=== PATIENT | female | born 1980 | race Caucasian/White ===

== ENCOUNTER 2016-12-22 14:33 | Inpatient (IN) ==
--- NOTE | 2016-12-22 14:45 | Emergency Department Note ---
Disposition Clinical Impression: Cellulitis Disposition: Admitted As Inpatient Condition: Good Referrals: NO,PCP [Primary Care Provider] - Forms: ED Satisfaction Letter Time of Disposition: 16:02 (Dr Su/Mg peres) Wound/Laceration HPI - General Chief Complaint: ED Wound/Laceration Stated Complaint: Cellulitis left lower leg Time Seen by Provider: 12/22/16 14:45 Source: patient Mode of arrival: ambulatory Limitations: no limitations Nursing Notes Reviewed: Yes Vital Signs Reviewed: Yes - History of Present Illness HPI Narrative: Seen Friday of this week for upper respiratory illnesses Havel erythema or fluid at that time it was thought not to be initiated worsen by Friday morning was seen at her local urgent care where she received IV antibiotics went home his continued to show a little bit of improvement then started getting worse again self family physician on Friday who placed her on a different oral antibiotic and as result was told to get worse to come to the emergency room she presents here today stating red-hot swollen lips extended outside the line margins that have been drawn on her leg she has had problems with elephantiasis of the lower extremity and is now getting superioris yellow honey crusted and weeping and draining patient has cough cold or flulike symptoms numbness and weakness or any further worsening of symptoms other than lower extremity not responding to oral antibiotics Onset (ago): week(s) Extremity Location: Left: lower leg, ankle, foot 1 - swollen edema red crusting weeping Place: home Patient Tetanus UTD: Yes Mechanism: other (chronic edema) Associated symptoms: Reports: other (weeping worseniing of erythema) Pain Severity: moderate Pain Scale: 4 - Related Data Home Medications Medication Instructions Recorded Confirmed Multivitamin [Multivitamins] 1 each PO DAILY 12/16/16 12/22/16 Levofloxacin [Levaquin] 750 mg PO DAILY 12/22/16 12/22/16 Previous Rx's Medication Instructions Recorded Promethazine [Phenergan] 25 mg PO Q6HR PRN #16 tablet 12/16/16 Allergies Allergy/AdvReac Type Severity Reaction Status Date / Time cephalexin [From Keflex] Allergy Rash Verified 12/22/16 14:35 Penicillins Allergy Rash Verified 12/16/16 18:25 Sulfa (Sulfonamide AdvReac Nausea Verified 12/16/16 18:25 Antibiotics) All systems ED: reviewed and negative except as stated. Review of Systems: As Per HPI Constitutional: Reports: weight change. Denies: fever, chills, weakness Eyes: Denies: eye pain ENT ED: Denies: ear pain Cardiovascular: Denies: chest pain Respiratory: Denies: cough, dyspnea Gastrointestinal: Denies: abdominal pain Genitourinary: Denies: urgency, dysuria Musculoskeletal: Denies: back pain, neck pain Integumentary: Reports: lesions (left leg). Denies: abrasion Neurological: Denies: headache Psychiatric: Denies: anxiety Endocrine: Reports: fatigue Hematological/Lymphatic: Denies: easy bleeding Allergic/Immunologic: Denies: facial swelling Past Medical History - Past Medical History Attestation: Yes The following information was validated with the patient. Source: patient, old records reviewed, nursing notes reviewed Medical history: Reports: no medical history, other Psychiatric history: Reports: no psych history - Social History Smoking Status: Never smoker Smokeless Tobacco Status: No Alcohol use: Reports: none Drug use: Reports: none Physical Exam - General Limitations: no limitations General appearance: alert, in no apparent distress, anxious - Head Head exam: atraumatic, normocephalic, normal inspection - Eye Eye exam: Present: normal appearance, PERRL, EOMI - ENT ENT exam: normal exam, normal oropharynx, mucous membranes moist - Neck Neck exam: Present: normal inspection, full ROM, trachea midline - Chest Chest inspection: Present: normal inspection, symmetric chest wall rise - Respiratory Respiratory exam: Present: normal lung sounds bilaterally - Cardiovascular Cardiovascular exam: Present: regular rate, normal rhythm, normal heart sounds - Abdominal Exam Abdominal exam: Present: soft, Non-Tender, normal bowel sounds. Absent: tenderness, distention, guarding, rebound, rigidity, mass, pulsatile mass - Expanded Upper Extremity Exam Shoulder exam: Present: normal inspection, full ROM Arm exam: Present: normal inspection, full ROM Elbow exam: Present: normal inspection, full ROM Forearm/Wrist exam: Present: normal inspection, full ROM Hand exam: Present: normal inspection, full ROM Vascular exam: Normal: capillary refill, radial pulse - Expanded Lower Extremity Exam Hip/Pelvis exam: Present: normal inspection, full ROM Upper leg exam: Present: normal inspection, full ROM 1 - And edema from the mid thigh distally with the large yellow blisters over the anterior tibial region and over the dorsal aspect of the foot with drainage of serous-type solution beefy red erythematous large plaquing noted over the anterior aspect of the leg with a fine erythematous rash which extends the marking on the pen by greater than centimeters from the deep erythema but the pale erythematous extending out 2 - Large blisterlike formation Knee exam: Present: normal inspection Lower leg exam: Present: normal inspection Ankle exam: Present: normal inspection Foot/toe exam: Present: normal inspection Neurovascular/Tendon exam: Present: normal capillary refill, normal fine/light touch Gait: observed and normal - Back Exam Back exam: Present: normal inspection, full ROM. Absent: muscle spasm - Neurological Exam Neurological exam: Present: alert, oriented X3, CN II-XII intact - Psychiatric Psychiatric exam: Present: normal affect, normal mood - Skin Skin exam: Present: warm, dry, intact, normal color Course Course Narrative: Should seen and examined patient was started on antibiotics IV patient's leg was weeping almost 150-200 mL's of serous fluid while here in the emergency room on the floor and on the dressing to catch the weeping lesions with Mike Su admitted for MedSurg for IV antibiotics Vital Signs Temperature 99.5 F 12/22/16 14:36 Pulse Rate 95 12/22/16 14:36 Respiratory Rate 14 12/22/16 14:36 Blood Pressure 140/86 12/22/16 14:36 O2 Sat by Pulse Oximetry 99 12/22/16 14:36 Temperature 99.5 F 12/22/16 14:36 Pulse Rate 95 12/22/16 14:36 Respiratory Rate 14 12/22/16 14:36 Blood Pressure 140/86 12/22/16 14:36 O2 Sat by Pulse Oximetry 99 12/22/16 14:36 Oxygen Delivery Oxygen Delivery Room Air Wound/Laceration - MDM Narrative Medical decision making narrative: cellulitis - Medical Records Medical records reviewed: Yes I reviewed the patient's medical records. - Lab Data Lab results reviewed: Yes I reviewed the patient's lab results. Result diagrams: 12/22/16 15:29 Lab Results 12/22/16 12/22/16 Range/Units 15:29 15:29 WBC 10.3 (4.3-11.1) K/mcL RBC 4.25 (3.82-4.97) M/mcL Hgb 12.3 D (11.5-15.4) g/dL Hct 35.3 (35.3-44.9) % MCV 83.1 (83.0-100.0) fL MCH 28.9 (28.0-33.3) pg MCHC 34.8 (31.6-35.5) g/dL RDW 12.7 (11.5-14.5) % Plt Count 241 (140-400) K/mcL MPV 10.1 (9.4-12.4) fL PT 12.8 H (9.4-12.1) Seconds INR 1.2 Critical Care Time Critical Care Time: No
[2016-12-22] MEDS ORDERED: Vancomycin 1,000 MG in D5% in Water 250 ML IVPB ONE (15:16)
[2016-12-22] MEDS ORDERED: 0.9 % Sodium Chloride 1,000 ML IVC SCH (15:30)
[2016-12-22] MEDS ORDERED: Vancomycin 1,500 MG in D5% in Water 250 ML IVPB ONE (15:30)
[2016-12-22 15:37] LABS: Eosinophils # 0.2 K/mcL (0.0-0.6); Hematocrit 35.3 % (35.3-44.9); Hemoglobin 12.3 g/dL (11.5-15.4); Mean Corpuscular HGB Conc 34.8 g/dL (31.6-35.5); Mean Corpuscular Hemoglobin 28.9 pg (28.0-33.3); Mean Corpuscular Volume 83.1 fL (83.0-100.0); Mean Platelet Volume 10.1 fL (9.4-12.4); Platelet Count 241 K/mcL (140-400); Red Blood Count 4.25 M/mcL (3.82-4.97); Red Cell Distribution Width 12.7 % (11.5-14.5)
[2016-12-22 15:44] LABS: INR 1.2; Prothrombin Time 12.8 Seconds (9.4-12.1)
[2016-12-22 15:46] LABS: Activated Partial Thrombo Time 31.9 Seconds (26.0-36.0)
[2016-12-22 15:53] LABS: BUN/Creatinine Ratio 18 (6-26); Blood Urea Nitrogen 13 mg/dL (7-20); Calcium 9.6 mg/dL (8.6-10.8); Carbon Dioxide 21 mEq/L (19-29); Chloride 106 mEq/L (98-109); Glucose 153 mg/dL (70-99); Magnesium 2.1 mg/dL (1.6-2.6); Osmolality,Calculated 295 (280-300); Potassium 3.1 mEq/L (3.5-4.5); Sodium 141 mEq/L (136-145); eGFR For African Americans > 60 (> 60); eGFR For Non-African Americans > 60 (> 60)
[2016-12-22 15:55] LABS: Lymphocytes # 1.2 K/mcL (0.6-4.6); Monocytes # 0.2 K/mcL (0.0-1.3)
[2016-12-22] MEDS ORDERED: Naloxone 0.4 MG/ML INJ IVP PRN (16:17)
[2016-12-22] MEDS ORDERED: *HR* HYDROcodone/Acet 5/325 mg TABLET PO PRN (16:17)
[2016-12-22] MEDS: 0.9 % Sodium Chloride 1,000 ML IVC SCH ×2 (17:36→23:14)
[2016-12-22] MEDS: Ibuprofen 400 MG TABLET PO PRN (18:40)
[2016-12-22] MEDS: Lactobacillus 1 EACH CAP.SPRINK PO SCH (21:58)
[2016-12-23] MEDS: Ibuprofen 400 MG TABLET PO PRN ×3 (04:57→19:30)
[2016-12-23 06:45] LABS: Basophils # 0.1 K/mcL (0.0-0.2); Basophils % 0.7 %; Eosinophils # 0.2 K/mcL (0.0-0.6); Eosinophils % 2.2 %; Hematocrit 31.6 % (35.3-44.9); Hemoglobin 10.7 g/dL (11.5-15.4); Immature Granulocytes % 10.5 % (0-4); Lymphocytes # 1.8 K/mcL (0.6-4.6); Mean Corpuscular HGB Conc 33.9 g/dL (31.6-35.5); Mean Corpuscular Hemoglobin 28.6 pg (28.0-33.3); Mean Corpuscular Volume 84.5 fL (83.0-100.0); Mean Platelet Volume 10.1 fL (9.4-12.4); Monocytes # 0.6 K/mcL (0.0-1.3); Monocytes % 6.4 %; Neutrophils # 5.9 K/mcL (1.6-8.9); Platelet Count 227 K/mcL (140-400); Red Blood Count 3.74 M/mcL (3.82-4.97); Red Cell Distribution Width 12.6 % (11.5-14.5); Segmented Neutrophils % 61.2 %
[2016-12-23 06:47] LABS: INR 1.2; Prothrombin Time 12.5 Seconds (9.4-12.1)
[2016-12-23 06:49] LABS: Activated Partial Thrombo Time 28.3 Seconds (26.0-36.0)
[2016-12-23 07:01] LABS: BUN/Creatinine Ratio 13 (6-26); Blood Urea Nitrogen 9 mg/dL (7-20); Calcium 8.4 mg/dL (8.6-10.8); Carbon Dioxide 22 mEq/L (19-29); Chloride 109 mEq/L (98-109); Glucose 109 mg/dL (70-99); Osmolality,Calculated 291 (280-300); Potassium 3.4 mEq/L (3.5-4.5); Sodium 141 mEq/L (136-145); eGFR For African Americans > 60 (> 60); eGFR For Non-African Americans > 60 (> 60)
[2016-12-23] MEDS: Lactobacillus 1 EACH CAP.SPRINK PO SCH ×2 (07:53→21:34)
[2016-12-23] MEDS: 0.9 % Sodium Chloride 1,000 ML IVC SCH (07:53)
[2016-12-23 11:05] LABS: Platelet Estimate Normal (Normal)
[2016-12-23] MEDS ORDERED: Vancomycin 1,750 MG in D5% in Water 250 ML IVPB SCH (12:00)
--- NOTE | 2016-12-23 12:02 | Internal Med History&Physical ---
Date of Encounter: 12/23/16 Time of Encounter: 11:30 Assessment and Plan (1) Cellulitis Current visit: Yes Status: Acute She has been started on IV vancomycin. I have added lactobacillus and clindamycin. Further workup will be done as needed. Qualifiers: Site of cellulitis of extremity: lower extremity Laterality: left Qualified Code(s): L03.116 - Cellulitis of left lower limb (2) Anemia Current visit: Yes Status: Acute Follow-up CBC today shows hemoglobin decreased to 10.7. I suspect it is primarily dilutional. Will check labs in a.m. Qualifiers: Anemia type: unspecified type Qualified Code(s): D64.9 - Anemia, unspecified (3) Hypokalemia Current visit: Yes Status: Acute We will give supplemental potassium and monitor labs. Internal Medicine - H&P: HPI Chief complaint: Leg infection Admitted From: Home Plans for Post Hospital Care: Home History of present illness: Ms. Sparks is a 36 year old female who came to emergency room with worsening leg infection onset approximately 5 days earlier. She reports she had gone to emergency room December 16 with complaints of a fever. She was released but went to urgent care on the following day with increasing erythema of her left lower leg. She was prescribed oral doxycycline after receiving an IV dose of vancomycin. The infection continued to progress and she saw Yoli Spears CNP at [place] on December 20 for follow-up. Doxycycline was discontinued and she was placed on Levaquin. The redness seemed to worsen so she came to emergency room and was felt to have cellulitis. She was admitted to [facility] floor for ongoing care needs. She denies any injury or trauma to the leg. She had right leg cellulitis approximately 18-24 months ago. Past Med Surg Social Fam HX - Past Medical History Medical history: no medical history, other Psychiatric history: no psych history - Past Surgical History Surgical History: - Social History Smoking Status: Never smoker Smokeless Tobacco Status: No Alcohol use: none Drug use: none Internal Medicine - H&P: Meds Multivitamin [Multivitamins] 1 each PO DAILY 12/16/16 [History] Promethazine [Phenergan] 25 mg PO Q6HR PRN #16 tablet 12/16/16 [Rx] Levofloxacin [Levaquin] 750 mg PO DAILY 12/22/16 [History] Allergies cephalexin [From Keflex] Allergy (Verified 12/22/16 14:35) Rash Penicillins Allergy (Verified 12/16/16 18:25) Rash Sulfa (Sulfonamide Antibiotics) Adverse Reaction (Verified 12/16/16 18:25) Nausea All Systems PM: A 10-system review of systems was performed and is negative for pertinent findings except as documented above in the HPI. Review of systems: Gen.: She states her weight has been stable the past few months Cardiovascular: She has an occasional sensation of heart "fluttering" but has not had workup. She has a heart murmur but does not recall an echocardiogram done. She denies hypertension [place] heart failure angina DVT or pulmonary embolus Respiratory: She is a lifelong nonsmoker and has no known chronic and disease GI: She denies disorders of her liver gallbladder or exocrine pancreas : She has had UTIs on 1-2 occasions in the past. She denies other kidney or bladder disorders Neurologic: She denies large distribution strokes or seizures Endocrine: She had gestational diabetes when with her second child which resolved with delivery. She denies thyroid disease or hyperlipidemia Hematology/oncology: She had anemia in the past. She denies other blood disorders or malignancies Psychiatric: She denies anxiety depression or other mental health issues Musculoskeletal: She denies arthritis gout or other bone joint or muscle disorders - Constitutional Vitals: Temp Pulse Resp BP Pulse Ox 98.8 F 78 18 120/77 98 12/23/16 10:19 12/23/16 10:19 12/23/16 10:19 12/23/16 10:19 12/23/16 10:19 Exam: Gen.: She is a well-developed well-nourished female lying in bed who appears in minimal distress at present time HEENT: Head is atraumatic and normocephalic. Eyes: EOMI. There is no scleral icterus. Mouth: Mucosa is moist. Neck: Supple and nontender. There is no thyromegaly or adenopathy noted. Heart: Regular with a 2 to 3/6 systolic murmur heard at the left sternal border. S1 and S2 are preserved. No ectopics are heard. Lungs: No wheezes or crackles are heard. Abdomen: Soft and nontender. No masses or guarding are noted. Extremities: The left lower leg shows large area of cellulitis with sharp demarcation to normal skin. There are multiple fluid-filled bullae. She has 1- 2+ edema of the dorsum of the left foot. The right lower leg is unremarkable. Neurologic: Mental status: She is talkative and a good historian. Cranial nerves: Smile is symmetric. Forehead wrinkles bilaterally. Tongue protrudes midline. EOMI. Motor: There is no pronator drift. Cerebellar: Finger to nose is intact bilaterally. Skin: Warm and dry Internal Med - H&P Results - Labs CBC & Chem 7: 12/23/16 06:00 12/23/16 06:00 Labs: Short CBC 12/23/16 Range/Units 06:00 WBC 9.7 (4.3-11.1) K/mcL Hgb 10.7 L D (11.5-15.4) g/dL Hct 31.6 L (35.3-44.9) % Plt Count 227 (140-400) K/mcL Neutrophils # 5.9 (1.6-8.9) K/mcL BMP 12/23/16 06:00 Sodium 141 Potassium 3.4 L Chloride 109 Carbon Dioxide 22 BUN 9 Creatinine 0.67 Glucose 109 H Calcium 8.4 L
[2016-12-23] MEDS ORDERED: Clindamycin 600 MG/50 ML 600 MG/50 ML IV.SOLN IVPB SCH (13:00)
[2016-12-23] MEDS: Clindamycin 600 MG/50 ML 600 MG/50 ML IV.SOLN IVPB SCH ×2 (13:36→21:34)
[2016-12-23] MEDS ORDERED: Vancomycin 1,750 MG in D5% in Water 500 ML IVPB ONE (14:00)
[2016-12-24] MEDS: Vancomycin 1,500 MG in D5% in Water 250 ML IVPB SCH ×2 (03:08→13:39)
[2016-12-24 04:35] LABS: Hematocrit 31.3 % (35.3-44.9); Hemoglobin 10.7 g/dL (11.5-15.4); Mean Corpuscular HGB Conc 34.2 g/dL (31.6-35.5); Mean Corpuscular Hemoglobin 29.1 pg (28.0-33.3); Mean Corpuscular Volume 85.1 fL (83.0-100.0); Mean Platelet Volume 9.9 fL (9.4-12.4); Platelet Count 262 K/mcL (140-400); Red Blood Count 3.68 M/mcL (3.82-4.97); Red Cell Distribution Width 12.4 % (11.5-14.5)
[2016-12-24 04:54] LABS: Alanine Aminotransferase 74 Units/L (0-55); Albumin 2.2 g/dL (3.5-5.0); Albumin/Globulin Ratio 0.5 (1.1-2.2); Alkaline Phosphatase 93 Units/L (38-126); Aspartate Amino Transferase 48 Units/L (5-34); BUN/Creatinine Ratio 14 (6-26); Bilirubin,Total 0.6 mg/dL (0.2-1.2); Blood Urea Nitrogen 9 mg/dL (7-20); Calcium 8.3 mg/dL (8.6-10.8); Carbon Dioxide 24 mEq/L (19-29); Chloride 108 mEq/L (98-109); Globulin 4.1 g/dL (2.4-3.5); Glucose 118 mg/dL (70-99); Osmolality,Calculated 292 (280-300); Potassium 3.4 mEq/L (3.5-4.5); Sodium 141 mEq/L (136-145); Total Protein 6.3 g/dL (6.0-8.3); eGFR For African Americans > 60 (> 60); eGFR For Non-African Americans > 60 (> 60)
[2016-12-24] MEDS: Clindamycin 600 MG/50 ML 600 MG/50 ML IV.SOLN IVPB SCH ×3 (05:28→20:15)
[2016-12-24] MEDS: Ibuprofen 400 MG TABLET PO PRN ×2 (06:12→16:19)
[2016-12-24 07:12] LABS: Lymphocytes # 1.1 K/mcL (0.6-4.6); Monocytes # 0.4 K/mcL (0.0-1.3); Neutrophils # 8.9 K/mcL (1.6-8.9)
[2016-12-24] MEDS: Lactobacillus 1 EACH CAP.SPRINK PO SCH ×2 (08:01→20:14)
[2016-12-24 09:52] LABS: Hemoglobin A1C 5.1 %
--- NOTE | 2016-12-24 10:28 | Internal Med Progress Note ---
Date of Encounter: 12/24/16 Time of Encounter: 10:20 - Assessment and plan (1) Cellulitis Current Visit: Yes Status: Acute Assessment and plan: December 24. Continue IV vancomycin, clindamycin, and Lactobacillus. WBC has risen minimally and there is persistent significant left shift on differential. Qualifiers: Site of cellulitis of extremity: lower extremity Laterality: left Qualified Code(s): L03.116 - Cellulitis of left lower limb (2) Anemia Current Visit: Yes Status: Acute Assessment and plan: December 24. Hemoglobin stable. Anemia testing is pending. Qualifiers: Anemia type: unspecified type Qualified Code(s): D64.9 - Anemia, unspecified (3) Hypokalemia Current Visit: Yes Status: Acute Assessment and plan: December 24. We will continue supplemental potassium and monitor labs. - Subjective Interval history: December 24. She has no new complaints. - Constitutional Vitals: Temp Pulse Resp BP Pulse Ox 98.4 F 78 16 130/75 98 12/24/16 06:33 12/24/16 06:33 12/24/16 06:33 12/24/16 06:33 12/24/16 06:33 Exam: There are no new bullae seen. There has been confluence of previous individual bullae. The erythematous margins have not expanded. I reviewed her medications and lab results. Internal Medicine: Result - Labs CBC & Chem 7: 12/24/16 04:05 12/24/16 04:05 Labs: Short CBC 12/23/16 12/24/16 Range/Units 06:00 04:05 WBC 11.1 (4.3-11.1) K/mcL Hgb 10.7 L (11.5-15.4) g/dL Hct 31.3 L (35.3-44.9) % Plt Count 262 (140-400) K/mcL Neutrophils # 5.9 8.9 (1.6-8.9) K/mcL BMP 12/24/16 04:05 Sodium 141 Potassium 3.4 L Chloride 108 Carbon Dioxide 24 BUN 9 Creatinine 0.66 Glucose 118 H Calcium 8.3 L Liver Function 12/24/16 Range/Units 04:05 Total Bilirubin 0.6 (0.2-1.2) mg/dL AST 48 H (5-34) Units/L ALT 74 H (0-55) Units/L Alkaline Phosphatase 93 (38-126) Units/L Albumin 2.2 L (3.5-5.0) g/dL - ABG Interpretation ABG results: PT/INR, D-dimer PT 12.5 Seconds (9.4-12.1) H 12/23/16 06:00 Consult Discharge Plan - Plan Referrals: NO,PCP [Primary Care Provider] - 1 week
[2016-12-24 12:34] LABS: % Iron Saturation 18 % (15-50); Iron 42 mcg/dL (50-170); Transferrin 169 mg/dL (180-382)
[2016-12-24 12:47] LABS: Ferritin 290 ng/ml (5-204)
[2016-12-24 12:59] LABS: Folate 12.7 ng/mL (7.0-31.4)
[2016-12-25 01:32] LABS: Basophils # 0.1 K/mcL (0.0-0.2); Basophils % 1.2 %; Eosinophils # 0.3 K/mcL (0.0-0.6); Eosinophils % 2.6 %; Hematocrit 33.5 % (35.3-44.9); Hemoglobin 10.9 g/dL (11.5-15.4); Immature Granulocytes % 10.1 % (0-4); Lymphocytes # 2.4 K/mcL (0.6-4.6); Lymphocytes % 20.8 %; Mean Corpuscular HGB Conc 32.5 g/dL (31.6-35.5); Mean Corpuscular Hemoglobin 28.8 pg (28.0-33.3); Mean Corpuscular Volume 88.6 fL (83.0-100.0); Mean Platelet Volume 9.6 fL (9.4-12.4); Monocytes # 0.7 K/mcL (0.0-1.3); Monocytes % 5.7 %; Neutrophils # 6.9 K/mcL (1.6-8.9); Platelet Count 287 K/mcL (140-400); Red Blood Count 3.78 M/mcL (3.82-4.97); Red Cell Distribution Width 12.3 % (11.5-14.5); Segmented Neutrophils % 59.6 %
[2016-12-25 01:38] LABS: BUN/Creatinine Ratio 17 (6-26); Blood Urea Nitrogen 11 mg/dL (7-20); Calcium 8.6 mg/dL (8.6-10.8); Carbon Dioxide 22 mEq/L (19-29); Chloride 108 mEq/L (98-109); Glucose 108 mg/dL (70-99); Osmolality,Calculated 290 (280-300); Sodium 140 mEq/L (136-145); eGFR For African Americans > 60 (> 60); eGFR For Non-African Americans > 60 (> 60)
[2016-12-25] MEDS: Vancomycin 1,500 MG in D5% in Water 250 ML IVPB SCH (02:12)
[2016-12-25] MEDS: Ibuprofen 400 MG TABLET PO PRN ×2 (02:29→14:16)
[2016-12-25] MEDS: Clindamycin 600 MG/50 ML 600 MG/50 ML IV.SOLN IVPB SCH ×3 (05:31→20:46)
[2016-12-25] MEDS: *HR* Enoxaparin 40 MG/0.4 ML SYRINGE SQ SCH (05:31)
[2016-12-25 07:25] LABS: Platelet Estimate Normal (Normal)
[2016-12-25] MEDS: Lactobacillus 1 EACH CAP.SPRINK PO SCH ×2 (08:10→20:46)
[2016-12-25] MEDS ORDERED: Aminoglycoside Consult 1 EACH MC ONE (14:00)
[2016-12-25] MEDS: Vancomycin 1,750 MG in D5% in Water 500 ML IVPB SCH (14:16)
--- NOTE | 2016-12-25 18:13 | Internal Med Progress Note ---
Date of Encounter: 12/25/16 Time of Encounter: 11:05 - Assessment and plan (1) Cellulitis Current Visit: Yes Status: Acute Assessment and plan: December 24. Continue IV vancomycin, clindamycin, and Lactobacillus. WBC has risen minimally and there is persistent significant left shift on differential. December 25. WBC has risen minimally. There is resolution of the left shift on the differential. Continue present regimen. Anticipate discharge home tomorrow. Qualifiers: Site of cellulitis of extremity: lower extremity Laterality: left Qualified Code(s): L03.116 - Cellulitis of left lower limb (2) Anemia Current Visit: Yes Status: Acute Assessment and plan: December 24. Hemoglobin stable. Anemia testing is pending. December 25. Hemoglobin stable at 10.9. Anemia testing showed no factor deficiency. Qualifiers: Anemia type: unspecified type Qualified Code(s): D64.9 - Anemia, unspecified (3) Hypokalemia Current Visit: Yes Status: Acute Assessment and plan: December 24. We will continue supplemental potassium and monitor labs. December 25. Potassium has normalized. Continue present regimen. - Subjective Interval history: December 24. She has no new complaints. December 25. She has no new complaints. - Constitutional Vitals: Temp Pulse Resp BP Pulse Ox 98.7 F 86 20 111/74 96 12/25/16 14:21 12/25/16 14:21 12/25/16 14:21 12/25/16 14:21 12/25/16 14:21 Exam: The left leg erythema shows no expansion of borders. There is now generalized flaccid bullae without significant fluid remaining. No evidence of secondary infection is seen. There is good granulation tissue present underneath the displaced epidermis. I reviewed her medications and lab results. Internal Medicine: Result - Labs CBC & Chem 7: 12/25/16 01:05 12/25/16 01:05 Labs: Short CBC 12/25/16 Range/Units 01:05 WBC 11.6 H (4.3-11.1) K/mcL Hgb 10.9 L (11.5-15.4) g/dL Hct 33.5 L (35.3-44.9) % Plt Count 287 (140-400) K/mcL Neutrophils # 6.9 (1.6-8.9) K/mcL BMP 12/25/16 01:05 Sodium 140 Potassium 4.0 Chloride 108 Carbon Dioxide 22 BUN 11 Creatinine 0.64 Glucose 108 H Calcium 8.6 - ABG Interpretation ABG results: PT/INR, D-dimer PT 12.5 Seconds (9.4-12.1) H 12/23/16 06:00 Consult Discharge Plan - Plan Referrals: NO,PCP [Primary Care Provider] - 1 week
[2016-12-26] MEDS: Vancomycin 1,750 MG in D5% in Water 500 ML IVPB SCH (02:48)
[2016-12-26] MEDS: Ibuprofen 400 MG TABLET PO PRN (02:57)
[2016-12-26] MEDS: Clindamycin 600 MG/50 ML 600 MG/50 ML IV.SOLN IVPB SCH (06:00)
[2016-12-26] MEDS: *HR* Enoxaparin 40 MG/0.4 ML SYRINGE SQ SCH (06:01)
[2016-12-26] MEDS: Lactobacillus 1 EACH CAP.SPRINK PO SCH (08:52)
[2016-12-26 10:00] VITALS: BP 119/80
--- NOTE | 2016-12-26 10:11 | Discharge Summary ---
Date of Encounter: 12/26/16 Time of Encounter: 10:00 - Discharge Diagnosis (1) Cellulitis Priority: Primary Status: Acute Qualifiers: Site of cellulitis of extremity: lower extremity Laterality: left Qualified Code(s): L03.116 - Cellulitis of left lower limb (2) Anemia Priority: Secondary Status: Acute Qualifiers: Anemia type: unspecified type Qualified Code(s): D64.9 - Anemia, unspecified (3) Hypokalemia Priority: Secondary Status: Resolved - Discharge Medications Prescriptions: Clindamycin HCl 300 mg PO Q6H #12 capsule Lactobacillus [Culturelle] 1 each PO BID #6 Home Medications: Multivitamin [Multivitamins] 1 each PO DAILY 12/16/16 [History] Promethazine [Phenergan] 25 mg PO Q6HR PRN #16 tablet 12/16/16 [Rx] Levofloxacin [Levaquin] 750 mg PO DAILY 12/22/16 [History] Clindamycin HCl 300 mg PO Q6H #12 capsule 12/26/16 [Rx] Lactobacillus [Culturelle] 1 each PO BID #6 12/26/16 [Rx] Allergies/Adverse Reactions: Allergies cephalexin [From Keflex] Allergy (Verified 12/22/16 14:35) Rash Penicillins Allergy (Verified 12/16/16 18:25) Rash sulfamethoxazole [From Bactrim] Allergy (Verified 12/24/16 02:40) Nausea trimethoprim [From Bactrim] Allergy (Verified 12/24/16 02:40) Nausea Sulfa (Sulfonamide Antibiotics) Adverse Reaction (Verified 12/16/16 18:25) Nausea Date of admission: 12/24/16 12:12 Primary care physician: Yoli Spears CNP - Patient Status Disposition: Home Health Service Condition: Good Functional capacity at discharge: independent ambulation Overall status at discharge: patient is progressing back to baseline - Discharge Instructions Follow Up With: Yoli Spears CNP [Advanced Practice Nurse] - 1 week - Diet and Activity Activity: resume usual activities as tolerated Diet: advance to your usual diet Hospital course: Ms. Sparks is a 36 year old female who came to emergency room with worsening leg infection onset approximately 5 days earlier. She reports she had gone to emergency room December 16 with complaints of a fever. She was released but went to urgent care on the following day with increasing erythema of her left lower leg. She was prescribed oral doxycycline after receiving an IV dose of vancomycin. The infection continued to progress and she saw Yoli Spears CNP at [place] on December 20 for follow-up. Doxycycline was discontinued and she was placed on Levaquin. The redness seemed to worsen so she came to emergency room and was felt to have cellulitis. She was admitted to [facility] for ongoing care needs. Initial orders were written by the emergency room physician. I saw her December 23 and performed the history and physical. She was started on IV vancomycin and clindamycin. Lactobacillus was also given. She had gradual fading of the erythema. There was significant bulla formation with development of confluence. The quantity of fluid was significantly decreased by the day of discharge. She will continue with oral antibiotics (clindamycin) and Lactobacillus for 3 additional days after discharge. Home health nursing will monitor and do daily dressing changes until healed. She will follow with Yoli Spears CNP within 1 week. WBC was 11.6 and hemoglobin 10.9 on the day prior to discharge. Potassium normalized to 4.0 by the day prior to discharge. Her PCP can monitor labs as needed. - Time Spent with Patient Total time spent providing and/or coordinating discharge services: - Constitutional Vitals: Temp Pulse Resp BP Pulse Ox 97.6 F 70 16 119/80 95 12/26/16 07:15 12/26/16 07:15 12/26/16 07:15 12/26/16 07:15 12/26/16 07:15
--- NOTE | 2016-12-26 10:21 | Physician Discharge Referral ---
Home Health/Hosp Referral Info Transfer to: Home Health Attending Provider: Mg Provider in Charge Post Discharge: PCP (Yoli Spears CNP) - Diagnosis (1) Cellulitis Priority: Primary Status: Acute (2) Anemia Priority: Secondary Status: Acute (3) Hypokalemia Priority: Secondary Status: Resolved - Respiratory Orders Smoking Cessation: Smoking cessation has been advised. For more information, call the [place] [employer] Quit Line at 1-432-EQJL-NOW. - Dressing/Wound Care Type of Dressing/Treatments w/Frequency: Daily dressing changes to left lower leg cellulitis/ulcerations until healed. - Activity Activity Orders: Ambulate - Services Needed Following services are medically necessary services: Nursing, Home Health Aide - Transfer Medications Prescriptions: Clindamycin HCl 300 mg PO Q6H #12 capsule Lactobacillus [Culturelle] 1 each PO BID #6 Home Medications: Multivitamin [Multivitamins] 1 each PO DAILY 12/16/16 [History] Promethazine [Phenergan] 25 mg PO Q6HR PRN #16 tablet 12/16/16 [Rx] Levofloxacin [Levaquin] 750 mg PO DAILY 12/22/16 [History] Clindamycin HCl 300 mg PO Q6H #12 capsule 12/26/16 [Rx] Lactobacillus [Culturelle] 1 each PO BID #6 12/26/16 [Rx] Allergies/Adverse Reactions: Allergies cephalexin [From Keflex] Allergy (Verified 12/22/16 14:35) Rash Penicillins Allergy (Verified 12/16/16 18:25) Rash sulfamethoxazole [From Bactrim] Allergy (Verified 12/24/16 02:40) Nausea trimethoprim [From Bactrim] Allergy (Verified 12/24/16 02:40) Nausea Sulfa (Sulfonamide Antibiotics) Adverse Reaction (Verified 12/16/16 18:25) Nausea Certification: Further, I certify that my clinical findings support that this patient is homebound (i.e. absences from home require considerable and taxing effort and are for medical reasons or christian services or infrequently or short duration when for other reasons) because: Homebound Reason: Leaving home requires considerable and taxing effort due to condition (Cellulitis and edema of left leg with ulcerations requiring daily dressing changes) Attestation: My signature below is to certify that this patient is under my care and that I, or nurse practitioner, or a physician's assistant superintendent for curriculum working with me, has a face-to -face encounter with this patient.
== END 2016-12-26 12:12 | disposition home health service (06) | DRG 603 ==
LOC: INPPIK 14:33 → EMEROOPIK 14:33 → INPPIK 16:12
PROVIDERS: ADMIT Internal Medicine; ATTEND Internal Medicine

== ENCOUNTER 2018-05-19 22:01 | Observation (INO) ==
--- NOTE | 2018-05-19 22:05 | Emergency Department Note ---
Disposition Clinical Impression: Cellulitis Disposition: Admitted As Inpatient Condition: Good Forms: ED Satisfaction Letter Time of Disposition: 23:25 Extremity Problem HPI - General Chief complaint: ED Extremity Problem,Nontraumatic Stated complaint: LEFT LEG SWELLING Time Seen by Provider: 05/19/18 22:03 Source: patient Mode of arrival: ambulatory Limitations: no limitations Nursing Notes Reviewed: Yes Vital Signs Reviewed: Yes - History of Present Illness HPI Narrative: Patient states that she was at [facility] at 1 with water and then today she had a burning sensation issue of is that her redness swelling and distal third leg on the left-hand side she had a similar type presentation of this years ago which took about 3 months to heal. cellulitis Tenderness noted and edema to the left foot she has chronic lymphedema she's got dry scaly skin of the feet she states that she doesn't see any cracks or splits patient states it just got red today she denies chest pain chest prescribed a cough cold of flulike symptoms numbness tingling weakness of further worsening symptoms all systems reviewed and are negative Pt Subjective Complaint: extremity pain, extremity swelling Onset (ago): hour(s) (10) Consistency: constant Injury Location: left, lower extremity Pain Scale: 6 Quality: aching Radiation: proximal Improves with: nothing Worsens with: nothing Associated symptoms: Denies: chest pain, shortness of breath, abdominal pain, back pain, bowel/bladder symptoms, fever, myalgias, arthralgias, rash, change in appearance, swelling, redness Context: other (Play at a waterpark) - Related Data Home Medications Medication Instructions Recorded Confirmed No Known Home Drugs 05/19/18 05/19/18 Allergies Allergy/AdvReac Type Severity Reaction Status Date / Time cephalexin [From Keflex] Allergy Rash Verified 05/19/18 22:05 Penicillins Allergy Rash Verified 05/19/18 22:05 sulfamethoxazole Allergy Nausea Verified 05/19/18 22:05 [From Bactrim] trimethoprim [From Bactrim] Allergy Nausea Verified 05/19/18 22:05 Sulfa (Sulfonamide AdvReac Nausea Verified 05/19/18 22:05 Antibiotics) All systems ED: reviewed and negative except as stated. Review of Systems: As Per HPI Constitutional: Denies: fever, chills Eyes: Denies: eye pain, eye discharge ENT ED: Denies: ear pain Cardiovascular: Denies: chest pain Respiratory: Denies: cough, dyspnea Gastrointestinal: Denies: abdominal pain, nausea Genitourinary: Denies: urgency, dysuria Musculoskeletal: Denies: back pain, neck pain Integumentary: Reports: rash. Denies: abrasion Neurological: Denies: headache, weakness Psychiatric: Denies: anxiety Endocrine: Denies: fatigue Hematological/Lymphatic: Denies: easy bleeding Allergic/Immunologic: Denies: facial swelling Past Medical History - Past Medical History Attestation: Yes The following information was validated with the patient. Source: patient, old records reviewed, nursing notes reviewed Medical history: Reports: other (cellulitis) Surgical history: Reports: Psychiatric history: Reports: no psych history - Social History Smoking Status: Never smoker Smokeless Tobacco Status: No Alcohol use: Reports: none Drug use: Reports: none Physical Exam - General Limitations: no limitations General appearance: alert, in no apparent distress, anxious, obese - Head Head exam: atraumatic, normocephalic, normal inspection - Eye Eye exam: Present: normal appearance, PERRL, EOMI - ENT ENT exam: normal exam, normal oropharynx, mucous membranes moist, TM's normal bilaterally, normal external ear exam - Neck Neck exam: Present: normal inspection, full ROM, trachea midline - Chest Chest inspection: Present: normal inspection, symmetric chest wall rise - Respiratory Respiratory exam: Present: normal lung sounds bilaterally - Cardiovascular Cardiovascular exam: Present: regular rate, normal rhythm, normal heart sounds - Abdominal Exam Abdominal exam: Present: soft, Non-Tender, normal bowel sounds. Absent: mass, pulsatile mass - Expanded Upper Extremity Exam Shoulder exam: Present: normal inspection, full ROM Arm exam: Present: normal inspection, full ROM Elbow exam: Present: normal inspection, full ROM Forearm/Wrist exam: Present: normal inspection, full ROM Hand exam: Present: normal inspection, full ROM Vascular exam: Normal: capillary refill, radial pulse - Expanded Lower Extremity Exam Hip/Pelvis exam: Present: normal inspection, full ROM Upper leg exam: Present: normal inspection, full ROM Knee exam: Present: normal inspection, full ROM Lower leg exam: Present: normal inspection, full ROM Ankle exam: Present: normal inspection, full ROM 1 - Hot red swollen tender to touch just slightly above the ankle crease. Dorsal pedal posterior tibial pulses. Brisk cap refill no cyanosis noted minimal redness noted to the digits majority of it is over the dorsal aspect of the fourth Foot/toe exam: Present: normal inspection, full ROM Neurovascular/Tendon exam: Present: normal capillary refill, normal fine/light touch. Absent: motor deficit, sensory deficit, tendon deficit Gait: observed and normal - Back Exam Back exam: Present: normal inspection, full ROM. Absent: muscle spasm - Neurological Exam Neurological exam: Present: alert, oriented X3, CN II-XII intact, normal gait - Psychiatric Psychiatric exam: Present: normal affect, normal mood - Skin Skin exam: Present: warm, dry, intact, normal color Course Course Narrative: Patient seen and evaluated examinations performed patient was started on vancomycin the ER because the elevated white count will observe her overnight give her additional IV and anticipate possible discharge after a couple doses of antibiotics Vital Signs Temperature 99.6 F 05/19/18 22:06 Pulse Rate 113 05/19/18 22:06 Respiratory Rate 20 05/19/18 22:06 Blood Pressure 124/89 05/19/18 22:06 O2 Sat by Pulse Oximetry 99 05/19/18 22:06 Temperature 99.2 F 05/19/18 23:15 Pulse Rate 102 05/19/18 23:15 Respiratory Rate 20 05/19/18 23:15 Blood Pressure 140/78 05/19/18 23:15 O2 Sat by Pulse Oximetry 98 05/19/18 23:15 Oxygen Delivery Oxygen Delivery Room Air Extremity Problem, Nontraumati - Differential Diagnosis Likely: cellulitis - Medical Records Medical records reviewed: Yes I reviewed the patient's medical records. - Lab Data Lab results reviewed: Yes I reviewed the patient's lab results. Result diagrams: 05/19/18 22:19 05/19/18 22:19 Lab Results 05/19/18 05/19/18 05/19/18 Range/Units 22:19 22:19 22:19 WBC 17.2 H (4.3-11.1) K/mcL RBC 4.50 (3.82-4.97) M/mcL Hgb 13.3 (11.5-15.4) g/dL Hct 37.6 (35.3-44.9) % MCV 83.6 (83.0-100.0) fL MCH 29.6 (28.0-33.3) pg MCHC 35.4 (31.6-35.5) g/dL RDW 12.0 (11.5-14.5) % Plt Count 182 (140-400) K/mcL MPV 11.2 (9.4-12.4) fL Immature Gran % 1.0 (0-4) % Seg Neutrophils % 89.4 % Lymphocytes % 3.4 % Monocytes % 5.9 % Eosinophils % 0.1 % Basophils % 0.2 % Neutrophils # 15.4 H (1.6-8.9) K/mcL Lymphocytes # 0.6 (0.6-4.6) K/mcL Monocytes # 1.0 (0.0-1.3) K/mcL Eosinophils # 0.0 (0.0-0.6) K/mcL Basophils # 0.0 (0.0-0.2) K/mcL PT 14.3 H (9.4-12.1) Seconds INR 1.3 APTT 33.0 (26.0-36.0) Seconds D-Dimer 446 (0-500) ng/mLFEU Sodium 136 (136-145) mEq/L Potassium 3.4 L (3.5-5.1) mEq/L Chloride 106 (98-107) mEq/L Carbon Dioxide 21 L (23-29) mEq/L BUN 12 (6-20) mg/dL Creatinine 0.73 (0.60-1.20) mg/dL Est GFR ( Amer) > 60 (> 60) Est GFR (Non-Af Amer) > 60 (> 60) BUN/Creatinine Ratio 16 (6-26) Glucose 143 H (70-105) mg/dL Calculated Osmolality 284 (280-300) Lactic Acid (0.5-2.2) mmol/L Calcium 8.9 (8.6-10.3) mg/dL Total Bilirubin 2.1 H (0.3-1.0) mg/dL AST 30 (13-39) Units/L ALT 27 (7-52) Units/L Alkaline Phosphatase 38 (34-104) Units/L Serum Total Protein 7.3 (6.4-8.9) g/dL Albumin 4.0 (3.5-5.7) g/dL Globulin 3.3 (2.4-3.5) g/dL Albumin/Globulin Ratio 1.2 (1.1-2.2) 05/19/18 Range/Units 22:19 WBC (4.3-11.1) K/mcL RBC (3.82-4.97) M/mcL Hgb (11.5-15.4) g/dL Hct (35.3-44.9) % MCV (83.0-100.0) fL MCH (28.0-33.3) pg MCHC (31.6-35.5) g/dL RDW (11.5-14.5) % Plt Count (140-400) K/mcL MPV (9.4-12.4) fL Immature Gran % (0-4) % Seg Neutrophils % % Lymphocytes % % Monocytes % % Eosinophils % % Basophils % % Neutrophils # (1.6-8.9) K/mcL Lymphocytes # (0.6-4.6) K/mcL Monocytes # (0.0-1.3) K/mcL Eosinophils # (0.0-0.6) K/mcL Basophils # (0.0-0.2) K/mcL PT (9.4-12.1) Seconds INR APTT (26.0-36.0) Seconds D-Dimer (0-500) ng/mLFEU Sodium (136-145) mEq/L Potassium (3.5-5.1) mEq/L Chloride (98-107) mEq/L Carbon Dioxide (23-29) mEq/L BUN (6-20) mg/dL Creatinine (0.60-1.20) mg/dL Est GFR ( Amer) (> 60) Est GFR (Non-Af Amer) (> 60) BUN/Creatinine Ratio (6-26) Glucose (70-105) mg/dL Calculated Osmolality (280-300) Lactic Acid 1.7 (0.5-2.2) mmol/L Calcium (8.6-10.3) mg/dL Total Bilirubin (0.3-1.0) mg/dL AST (13-39) Units/L ALT (7-52) Units/L Alkaline Phosphatase (34-104) Units/L Serum Total Protein (6.4-8.9) g/dL Albumin (3.5-5.7) g/dL Globulin (2.4-3.5) g/dL Albumin/Globulin Ratio (1.1-2.2) Critical Care Time Critical Care Time: No
[2018-05-19 22:45] LABS: Basophils % 0.2 %; Eosinophils % 0.1 %; Hematocrit 37.6 % (35.3-44.9); Hemoglobin 13.3 g/dL (11.5-15.4); Lymphocytes # 0.6 K/mcL (0.6-4.6); Lymphocytes % 3.4 %; Mean Corpuscular HGB Conc 35.4 g/dL (31.6-35.5); Mean Corpuscular Hemoglobin 29.6 pg (28.0-33.3); Mean Corpuscular Volume 83.6 fL (83.0-100.0); Mean Platelet Volume 11.2 fL (9.4-12.4); Monocytes % 5.9 %; Neutrophils # 15.4 K/mcL (1.6-8.9); Platelet Count 182 K/mcL (140-400); Segmented Neutrophils % 89.4 %
[2018-05-19 22:52] LABS: INR 1.3; Prothrombin Time 14.3 Seconds (9.4-12.1)
[2018-05-19 23:03] LABS: Alanine Aminotransferase 27 Units/L (7-52); Albumin/Globulin Ratio 1.2 (1.1-2.2); Alkaline Phosphatase 38 Units/L (34-104); Aspartate Amino Transferase 30 Units/L (13-39); BUN/Creatinine Ratio 16 (6-26); Bilirubin,Total 2.1 mg/dL (0.3-1.0); Blood Urea Nitrogen 12 mg/dL (6-20); Calcium 8.9 mg/dL (8.6-10.3); Carbon Dioxide 21 mEq/L (23-29); Chloride 106 mEq/L (98-107); Globulin 3.3 g/dL (2.4-3.5); Glucose 143 mg/dL (70-105); Osmolality,Calculated 284 (280-300); Potassium 3.4 mEq/L (3.5-5.1); Sodium 136 mEq/L (136-145); Total Protein 7.3 g/dL (6.4-8.9); eGFR For Non-African Americans > 60 (> 60)
[2018-05-19] MEDS ORDERED: Vancomycin 1,500 MG in D5% in Water 250 ML IVPB ONE (23:12)
[2018-05-19] MEDS ORDERED: Naloxone 0.4 MG/ML INJ IVP PRN (23:40)
[2018-05-19] MEDS ORDERED: Vancomycin 1,750 MG in 0.9 % Sodium Chloride 250 ML IVPB SCH (23:45)
[2018-05-20] MEDS: 0.9 % Sodium Chloride 1,000 ML IVC SCH ×2 (00:05→08:24)
[2018-05-20] MEDS ORDERED: Acetaminophen 325 MG TABLET PO PRN (04:37)
[2018-05-20 04:45] LABS: Basophils % 0.1 %; Hematocrit 36.9 % (35.3-44.9); Hemoglobin 12.9 g/dL (11.5-15.4); Immature Granulocytes % 0.8 % (0-4); Lymphocytes # 0.5 K/mcL (0.6-4.6); Lymphocytes % 3.9 %; Mean Corpuscular Hemoglobin 29.6 pg (28.0-33.3); Mean Corpuscular Volume 84.6 fL (83.0-100.0); Monocytes # 0.6 K/mcL (0.0-1.3); Monocytes % 5.4 %; Neutrophils # 10.3 K/mcL (1.6-8.9); Platelet Count 153 K/mcL (140-400); Red Blood Count 4.36 M/mcL (3.82-4.97); Red Cell Distribution Width 12.2 % (11.5-14.5); Segmented Neutrophils % 89.8 %
[2018-05-20 05:06] LABS: INR 1.5; Prothrombin Time 16.5 Seconds (9.4-12.1)
[2018-05-20 05:08] LABS: Activated Partial Thrombo Time 35.2 Seconds (26.0-36.0)
--- NOTE | 2018-05-20 11:58 | Internal Med History&Physical ---
Date of Encounter: 05/20/18 Time of Encounter: 11:30 Assessment and Plan (1) Cellulitis Current visit: Yes Status: Acute She was started on IV vancomycin in emergency room. Add doxycycline and lactobacillus. Recheck labs in a.m. Qualifiers: Site of cellulitis: extremity Site of cellulitis of extremity: lower extremity Laterality: left Qualified Code(s): L03.116 - Cellulitis of left lower limb (2) Elevated bilirubin Current visit: Yes Status: Acute LFTs otherwise unremarkable. Recheck labs in a.m. (3) Hypokalemia Current visit: No Status: Acute Order supplemental potassium and recheck labs in a.m. Internal Medicine - H&P: HPI Chief complaint: Left leg redness Admitted From: Emergency Dept Plans for Post Hospital Care: Home History of present illness: Ms. Sparks is a 37 year old female whocame to emergency room stating she had noticed increasing redness and pain in her left foot and lower leg while returning from an outing earlier in the day at [facility]. She felt fevered but denies vomiting diarrhea or cough. She came to emergency room for evaluation and was felt to have cellulitis. Leukocytosis with left shift was present. She was admitted to [facility] floor for ongoing care needs. She reports right leg cellulitis approximately 2015 and was hospitalized at [facility] November 2016 with left leg cellulitis. She has been diagnosed with lymphedema and wears compression stockings frequently. Past Med Surg Social Fam HX - Past Medical History Medical history: other Additional medical history: Cellulitis Psychiatric history: no psych history - Past Surgical History Surgical History: - Social History Smoking Status: Never smoker Smokeless Tobacco Status: No Alcohol use: none Drug use: none - Family History Mother Living Status: Still Living Hx Family Cardiac Disorders: Yes (HTN) Father Living Status: Cause of : Cancer Hx Family Cancer: Yes (Breast, testicular) Internal Medicine - H&P: Meds No Known Home Drugs 05/19/18 [History] Allergy/AdvReac Type Severity Reaction Status Date / Time cephalexin [From Keflex] Allergy Rash Verified 05/19/18 22:05 Penicillins Allergy Rash Verified 05/19/18 22:05 sulfamethoxazole Allergy Nausea Verified 05/19/18 22:05 [From Bactrim] trimethoprim [From Bactrim] Allergy Nausea Verified 05/19/18 22:05 Sulfa (Sulfonamide AdvReac Nausea Verified 05/19/18 22:05 Antibiotics) All Systems PM: A 10-system review of systems was performed and is negative for pertinent findings except as documented above in the HPI. Review of systems: Review of systems from her November 2016 [facility] hospitalization were reviewed and revised as below. Gen.: Her weight has remained approximate 114 kg since November 2016 hospitalization. Cardiovascular: She has an occasional sensation of heart "fluttering" but has not had workup. She has a heart murmur but does not recall an echocardiogram done. She denies hypertension CO heart failure angina DVT or pulmonary embolus Respiratory: She is a lifelong nonsmoker and has no known chronic and disease GI: She denies disorders of her liver gallbladder or exocrine pancreas : She has had UTIs on 1-2 occasions in the past. She denies other kidney or bladder disorders Neurologic: She denies large distribution strokes or seizures Endocrine: She had gestational diabetes when with her second child which resolved with delivery. She denies thyroid disease or hyperlipidemia Hematology/oncology: She had anemia in the past which has now resolved. She denies other blood disorders or malignancies Psychiatric: She denies anxiety depression or other mental health issues Musculoskeletal: She denies arthritis gout or other bone joint or muscle disorders - Constitutional Vitals: Temp Pulse Resp BP Pulse Ox 98.3 F 88 16 116/65 99 05/20/18 10:23 05/20/18 10:23 05/20/18 10:23 05/20/18 10:23 05/20/18 10:23 Exam: Gen.: She is a well-developed overweight female resting comfortably in bed who appears in no acute distress HEENT: Head is atraumatic and normocephalic. Eyes: EOMI. There is no scleral icterus. Mouth: Mucosa is moist. Neck: Supple and nontender. There is no thyromegaly or adenopathy noted. Heart: Regular with a 2/6 systolic murmur heard best at the left sternal border radiating to the base. S1 and S2 are preserved. No ectopics are heard. Lungs: No wheezes or crackles are heard. Abdomen: Soft and nontender. No masses or guarding are noted. Extremities: The right leg is unremarkable. The left leg shows erythema extending from the toes to the mid calf area. There are no open areas. No tenia pedis is noted. There is increased warmth to touch but no significant pit ting edema in either leg. Neurologic: Mental status: She is talkative and a good historian. Cranial nerves: Smile is symmetric. Forehead wrinkles bilaterally. Tongue protrudes midline. EOMI. Motor: There is no pronator drift. Cerebellar: Finger to nose is intact bilaterally. Skin: Warm and dry Internal Med - H&P Results - Labs CBC & Chem 7: 05/20/18 04:28 05/19/18 22:19 Labs: Short CBC 05/19/18 05/20/18 Range/Units 22:19 04:28 WBC 17.2 H 11.5 H (4.3-11.1) K/mcL Hgb 13.3 12.9 (11.5-15.4) g/dL Hct 37.6 36.9 (35.3-44.9) % Plt Count 182 153 (140-400) K/mcL Neutrophils # 15.4 H 10.3 H (1.6-8.9) K/mcL BMP 05/19/18 22:19 Sodium 136 Potassium 3.4 L Chloride 106 Carbon Dioxide 21 L BUN 12 Creatinine 0.73 Glucose 143 H Calcium 8.9 Liver Function 05/19/18 Range/Units 22:19 Total Bilirubin 2.1 H (0.3-1.0) mg/dL AST 30 (13-39) Units/L ALT 27 (7-52) Units/L Alkaline Phosphatase 38 (34-104) Units/L Albumin 4.0 (3.5-5.7) g/dL
[2018-05-20] MEDS: Doxycycline 100 MG CAPSULE PO SCH ×2 (13:55→20:30)
[2018-05-20] MEDS: Lactobacillus 1 EACH CAP.SPRINK PO SCH (20:30)
[2018-05-21 05:39] LABS: Basophils % 0.3 %; Hematocrit 36.5 % (35.3-44.9); Hemoglobin 12.4 g/dL (11.5-15.4); Immature Granulocytes % 0.8 % (0-4); Lymphocytes % 12.4 %; Mean Corpuscular Hemoglobin 29.2 pg (28.0-33.3); Mean Corpuscular Volume 85.9 fL (83.0-100.0); Mean Platelet Volume 11.4 fL (9.4-12.4); Monocytes # 0.6 K/mcL (0.0-1.3); Neutrophils # 6.4 K/mcL (1.6-8.9); Platelet Count 138 K/mcL (140-400); Red Blood Count 4.25 M/mcL (3.82-4.97); Red Cell Distribution Width 12.4 % (11.5-14.5); Segmented Neutrophils % 79.5 %
[2018-05-21 06:12] LABS: Alanine Aminotransferase 48 Units/L (7-52); Albumin 3.3 g/dL (3.5-5.7); Alkaline Phosphatase 45 Units/L (34-104); Aspartate Amino Transferase 39 Units/L (13-39); BUN/Creatinine Ratio 13 (6-26); Bilirubin,Direct 0.3 mg/dL (0.0-0.2); Bilirubin,Indirect 1.7 mg/dL (0.0-1.2); Blood Urea Nitrogen 9 mg/dL (6-20); Calcium 8.3 mg/dL (8.6-10.3); Carbon Dioxide 20 mEq/L (23-29); Chloride 109 mEq/L (98-107); Globulin 3.3 g/dL (2.4-3.5); Glucose 106 mg/dL (70-105); Osmolality,Calculated 281 (280-300); Potassium 3.7 mEq/L (3.5-5.1); Sodium 136 mEq/L (136-145); Total Protein 6.6 g/dL (6.4-8.9); eGFR For Non-African Americans > 60 (> 60)
[2018-05-21 06:28] LABS: Thyroid Stimulating Hormone 2.063 mcIU/mL (0.340-5.600)
[2018-05-21] MEDS: Lactobacillus 1 EACH CAP.SPRINK PO SCH ×2 (09:18→22:26)
[2018-05-21] MEDS: Doxycycline 100 MG CAPSULE PO SCH ×2 (09:18→22:26)
--- NOTE | 2018-05-21 10:27 | Internal Med Progress Note ---
Date of Encounter: 05/21/18 Time of Encounter: 10:15 - Assessment and plan (1) Cellulitis Current Visit: Yes Status: Acute Assessment and plan: May 21. Continue vancomycin and doxycycline with lactobacillus. Qualifiers: Site of cellulitis: extremity Site of cellulitis of extremity: lower extremity Laterality: left Qualified Code(s): L03.116 - Cellulitis of left lower limb (2) Elevated bilirubin Current Visit: Yes Status: Acute Assessment and plan: May 21. Minimally improved to 2.0. She reports she has been told in the past she has had hyperbilirubinemia. Suspect Gilbert's syndrome. Continue to monitor. (3) Hypokalemia Current Visit: No Status: Acute Assessment and plan: May 21. Potassium level normal at 3.7. Continue supplemental potassium and monitoring. - Subjective Interval history: May 21. She has no new complaints and states her left lower leg feels improved. - Constitutional Vitals: Temp Pulse Resp BP Pulse Ox 99.8 F H 97 18 119/63 97 05/21/18 08:56 05/21/18 08:56 05/21/18 08:56 05/21/18 08:56 05/21/18 08:56 Exam: She is resting comfortably in bed and appears in no acute distress. There is no significant change in the erythema intensity of the left lower leg. There appears to be no change in the marginal boundaries of the erythema. I reviewed her medications and lab results. Internal Medicine: Result - Labs CBC & Chem 7: 05/21/18 04:43 05/21/18 04:43 Labs: Short CBC 05/21/18 Range/Units 04:43 WBC 8.0 (4.3-11.1) K/mcL Hgb 12.4 (11.5-15.4) g/dL Hct 36.5 (35.3-44.9) % Plt Count 138 L (140-400) K/mcL Neutrophils # 6.4 (1.6-8.9) K/mcL BMP 05/21/18 04:43 Sodium 136 Potassium 3.7 Chloride 109 H Carbon Dioxide 20 L BUN 9 Creatinine 0.67 Glucose 106 H Calcium 8.3 L Liver Function 05/21/18 Range/Units 04:43 Total Bilirubin 2.0 H (0.3-1.0) mg/dL Direct Bilirubin 0.3 H (0.0-0.2) mg/dL AST 39 (13-39) Units/L ALT 48 (7-52) Units/L Alkaline Phosphatase 45 (34-104) Units/L Albumin 3.3 L (3.5-5.7) g/dL - ABG Interpretation ABG results: PT/INR, D-dimer PT 16.5 Seconds (9.4-12.1) H 05/20/18 04:28 D-Dimer 446 ng/mLFEU (0-500) 05/19/18 22:19 Consult Discharge Plan - Plan Referrals: Braxton Saldaña, [employer] [Primary Care Provider] - 1 week
[2018-05-22 06:39] LABS: Basophils % 0.3 %; Eosinophils # 0.1 K/mcL (0.0-0.6); Hematocrit 34.4 % (35.3-44.9); Hemoglobin 11.7 g/dL (11.5-15.4); Immature Granulocytes % 0.3 % (0-4); Lymphocytes # 1.2 K/mcL (0.6-4.6); Lymphocytes % 21.4 %; Mean Corpuscular Hemoglobin 29.2 pg (28.0-33.3); Mean Corpuscular Volume 85.8 fL (83.0-100.0); Mean Platelet Volume 10.7 fL (9.4-12.4); Monocytes # 0.6 K/mcL (0.0-1.3); Monocytes % 9.8 %; Neutrophils # 3.9 K/mcL (1.6-8.9); Platelet Count 141 K/mcL (140-400); Red Blood Count 4.01 M/mcL (3.82-4.97); Red Cell Distribution Width 12.3 % (11.5-14.5); Segmented Neutrophils % 67.2 %
[2018-05-22 06:51] LABS: Alanine Aminotransferase 36 Units/L (7-52); Albumin 3.4 g/dL (3.5-5.7); Alkaline Phosphatase 43 Units/L (34-104); Aspartate Amino Transferase 25 Units/L (13-39); BUN/Creatinine Ratio 14 (6-26); Bilirubin,Total 1.2 mg/dL (0.3-1.0); Blood Urea Nitrogen 9 mg/dL (6-20); Calcium 8.3 mg/dL (8.6-10.3); Carbon Dioxide 18 mEq/L (23-29); Chloride 111 mEq/L (98-107); Globulin 3.3 g/dL (2.4-3.5); Glucose 115 mg/dL (70-105); Osmolality,Calculated 286 (280-300); Potassium 3.5 mEq/L (3.5-5.1); Sodium 138 mEq/L (136-145); Total Protein 6.7 g/dL (6.4-8.9); eGFR For Non-African Americans > 60 (> 60)
[2018-05-22 06:53] LABS: Platelet Estimate Normal (Normal)
[2018-05-22] MEDS: Lactobacillus 1 EACH CAP.SPRINK PO SCH (09:04)
[2018-05-22] MEDS: Doxycycline 100 MG CAPSULE PO SCH (09:04)
--- NOTE | 2018-05-22 09:22 | Discharge Summary ---
Orders not resulted at time of discharge: Pending orders 05/19/18 22:19 Culture,Blood [BC] Stat 05/22/18 10:00 Vancomycin,Trough Timed Date of Encounter: 05/22/18 Time of Encounter: 09:15 - Discharge Diagnosis (1) Cellulitis Priority: Primary Status: Acute Qualifiers: Site of cellulitis: extremity Site of cellulitis of extremity: lower extremity Laterality: left Qualified Code(s): L03.116 - Cellulitis of left lower limb (2) Elevated bilirubin Priority: Secondary Status: Acute (3) Hypokalemia Priority: Secondary Status: Acute Hospital course: Ms. Sparks is a 37 year old female who came to emergency room stating she had noticed increasing redness and pain in her left foot and lower leg while returning from an outing earlier in the day at [facility]. She felt fevered but denies vomiting diarrhea or cough. She came to emergency room for evaluation and was felt to have cellulitis. Leukocytosis with left shift was present. She was admitted to [facility] floor for ongoing care needs. Initial orders were written by the emergency room physician. I saw her on May 20 and performed a history and physical. She was started on IV vancomycin in emergency room. I added doxycycline and lactobacillus. She had noticeable improvement with decrease in the intensity of erythema and overall size by May 22. She had occasional fever spikes during hospitalization. She felt clinically improved on May 22 is stable for discharge home. She will continue with oral doxycycline and lactobacillus with clindamycin for an additional week. She will follow with her PCP within 1 week. Total bilirubin improved to 1.2 by day of discharge. I told her she possibly had Gilbert syndrome and no further workup or treatment was needed at this time. - Time Spent with Patient Total time spent providing and/or coordinating discharge services: - Discharge Medications Prescriptions: Clindamycin HCl 300 mg PO TID #21 capsule Doxycycline 100 mg PO BID #14 capsule Lactobacillus [Culturelle] 1 each PO BID #14 cap.[email or web address] Home Medications: Clindamycin HCl 300 mg PO TID #21 capsule 05/22/18 [Rx] Doxycycline 100 mg PO BID #14 capsule 05/22/18 [Rx] Lactobacillus [Culturelle] 1 each PO BID #14 cap.[email or web address] 05/22/18 [Rx] Allergies/Adverse Reactions: Allergy/AdvReac Type Severity Reaction Status Date / Time cephalexin [From Keflex] Allergy Rash Verified 05/19/18 22:05 Penicillins Allergy Rash Verified 05/19/18 22:05 sulfamethoxazole Allergy Nausea Verified 05/19/18 22:05 [From Bactrim] trimethoprim [From Bactrim] Allergy Nausea Verified 05/19/18 22:05 Sulfa (Sulfonamide AdvReac Nausea Verified 05/19/18 22:05 Antibiotics) Date of admission: 05/19/18 23:19 Primary care physician: Braxton Saldaña CNP - Constitutional Vitals: Temp Pulse Resp BP Pulse Ox 98.7 F 77 18 112/67 98 05/22/18 07:19 05/22/18 07:19 05/22/18 07:19 05/22/18 07:19 05/22/18 07:19 - Patient Status Disposition: Home, Self-Care Condition: Good - Discharge Instructions Follow Up With: Braxton Saldaña CNP [Primary Care Provider] - 1 week - Diet and Activity Activity: resume usual activities as tolerated Diet: advance to your usual diet
[2018-05-22 09:49] VITALS: BP 120/74
[2018-05-22] MEDS ORDERED: Aminoglycoside Consult 1 EACH MC ONE (11:00)
== END 2018-05-22 11:12 | disposition home or self-care (01) ==
LOC: INPPIK 22:01 → EMEROOPIK 22:01 → INPPIK 23:36
PROVIDERS: ADMIT Internal Medicine; ATTEND Internal Medicine